=== PATIENT | male | born 1950 | race Caucasian/White ===

== ENCOUNTER → 2016-10-15 | Outpatient (CLI) | payer MEDICARE ==
[2016-10-15 08:10] LABS: BASOPHILS # (AUTO) 0.1 10^3/uL (0.0-0.1); BASOPHILS % (AUTO) 1 % (0-10); EOSINOPHILS # (AUTO) 0.2 10^3/uL (0.0-0.3); EOSINOPHILS % (AUTO) 3 % (0-10); LYMPHOCYTES # (AUTO) 2.8 X 10^3 (1.0-4.0); LYMPHOCYTES % (AUTO) 36 % (12-44); MEAN CORPUSCULAR HEMOGLOBIN 31 PG (25-34); MEAN CORPUSCULAR HGB CONC 35 G/DL (32-36); MEAN CORPUSCULAR VOLUME 89 FL (80-99); MONOCYTES # (AUTO) 0.9 X 10^3 (0.0-1.0); MONOCYTES % (AUTO) 12 % (0-12); NEUTROPHILS # (AUTO) 3.8 X 10^3 (1.8-7.8); NEUTROPHILS % (AUTO) 49 % (42-75); PLATELET COUNT 162 10^3/uL (130-400); RED BLOOD COUNT 4.82 10^6/uL (4.35-5.85); RED CELL DISTRIBUTION WIDTH 13.8 % (10.0-14.5); WHITE BLOOD COUNT 7.8 10^3/uL (4.3-11.0)
[2016-10-15 08:32] LABS: ALANINE AMINOTRANSFERASE 32 U/L (0-55); ALBUMIN 4.5 G/DL (3.2-4.5); ANION GAP 10 MMOL/L (5-14); ASPARTATE AMINO TRANSFERASE 35 U/L (5-34); BILIRUBIN,TOTAL 0.7 MG/DL (0.1-1.0); BLOOD UREA NITROGEN 20 MG/DL (7-18); BUN/CREATININE RATIO 19; CALCIUM 9.4 MG/DL (8.5-10.1); CARBON DIOXIDE 22 MMOL/L (21-32); CHLORIDE 105 MMOL/L (98-107); CHOLESTEROL 131 MG/DL (< 200); CREATININE SERUM 1.06 MG/DL (0.60-1.30); DIRECT LDL 56 MG/DL (1-129); GFR ESTIMATED > 60; GLUCOSE 158 MG/DL (70-105); POTASSIUM 4.1 MMOL/L (3.6-5.0); SODIUM 137 MMOL/L (135-145); TOTAL PROTEIN 7.3 G/DL (6.4-8.2); TRIGLYCERIDES 249 MG/DL (<150); VLDL CHOLESTEROL 50 MG/DL (5-40)
[2016-10-15 08:54] LABS: THYROID STIMULATING HORMONE 2.08 UIU/ML (0.35-4.94)
== END ==
LOC: LAB 07:54
PROVIDERS: ATTEND Family Medicine
DX: E78.2 Mixed hyperlipidemia (principal); E03.9 Hypothyroidism, unspecified; E11.9 Type 2 diabetes mellitus without complications
CPT/HCPCS: 36415; 80053; 80061; 83036; 84443; 85025

== ENCOUNTER 2020-03-26 05:41 | Outpatient (CLI) | payer MEDICARE ==
[~2020-03-26] VITALS: Ht 180 cm; Wt 81.8 kg
[2020-03-26] MEDS ORDERED: METO50TA15 PO (12:03)
[2020-03-26] MEDS ORDERED: FENO134C PO (12:03)
[2020-03-26] MEDS ORDERED: GLIM1TAB4 PO ×2 (12:03)
[2020-03-26] MEDS ORDERED: IRBE150T23 PO (12:03)
[2020-03-26] MEDS ORDERED: ALLO300T2 PO (12:03)
== END 2020-03-26 12:07 | disposition home or self-care (01) ==
LOC: PREOP 05:41
PROVIDERS: ATTEND Specialist
DX: Z01.818 Encounter for other preprocedural examination (principal)

== ENCOUNTER 2020-03-28 06:05 | Day surgery (SDC) | payer MEDICARE ==
[~2020-03-28] VITALS: Ht 180 cm; Wt 81.8 kg
[~2020-03-28 06:05] MED LIST: ALLO300T2 PO; FENO134C PO; GLIM1TAB4 PO; IRBE150T23 PO; METO50TA15 PO
[2020-03-28] MEDS ORDERED: POVIDONE (BETADINE) OPHTH SOLN 5% 30 ML OP ONE (06:15)
[2020-03-28] MEDS ORDERED: TIMOLOL MALEATE 0.5% 5 ML (TIMOPTIC) BTL OU PRN (06:15)
[2020-03-28] MEDS ORDERED: MOXIFLOXACIN OPHTH SOLN 5 MG/ML 0.3 ML SYRINGE OP ONE (06:15)
[2020-03-28] MEDS ORDERED: LIDOCAINE PF 1% 2 ML VIAL IR PRN (06:15)
[2020-03-28 06:20] VITALS: BP 148/88
[2020-03-28] MEDS: TETRACAINE 0.5% OPHTH SOLN 4 ML BTL (SINGLE DOSE ONLY) OU PRN ×4 (06:25→06:46)
[2020-03-28] MEDS: CYCLOPENTOLATE 1% (CYCLOGYL) 2 ML DROPS OP SCH ×3 (06:35→06:46)
[2020-03-28] MEDS: PHENYLEPHRINE 10% OPHTH (NEO-SYN) 5 ML BTL OU SCH ×3 (06:35→06:46)
[2020-03-28] MEDS ORDERED: MIDAZOLAM 2 MG/2 ML (VERSED) VIAL ONE (06:55)
--- NOTE | 2020-03-28 07:02 | Ophthalmologist Pre-Op Note ---
Pre-Operative Progress Note H&P Reviewed The H&P was reviewed, patient examined and no changes noted. Date H&P Reviewed: Mar 28, 2020 Time H&P Reviewed: 07:02 Pre-Op Dx Cataract, Right Eye JOSE VILLATORO MD Mar 28, 2020 07:02
--- NOTE | 2020-03-28 07:22 | Ophthalmology Operative Report ---
Cataract removal/placement IOL PREOPERATIVE DIAGNOSIS: Cataract Right Eye POSTOPERATIVE DIAGNOSIS: Cataract Right Eye PROCEDURE: Cataract removal and placement of posterior chamber implant, right eye SURGEON: Juan Luis Villatoro ANESTHESIA: Topical with sedation COMPLICATIONS: None ESTIMATED BLOOD LOSS: Minimal DESCRIPTION OF PROCEDURE: After proper informed consent was obtained, the patient, a 70 male, was taken to the Operating Room and the right eye was anesthetized with tetracaine. The right eye was then prepped and draped in the usual manner. A wire lid speculum was placed. A paracentesis was made at the left hand position. Preservative free lidocaine was injected into the anterior chamber followed by viscoelastic. A clear corneal incision was made in the temporal position. A capsulorrhexis was preformed and the central nuclear and cortical material were removed. The posterior capsule was polished and Sadi 21.0 AU00T0 IOL was placed into the capsular bag. The residual viscoelastic was aspirated and balanced saline solution was injected into the anterior chamber. Moxifloxacin was injected into the anterior chamber. The wound was checked and found to be water tight. The patient tolerated the procedure well without complications. JUAN LUIS VILLATORO MD Mar 28, 2020 07:21
[2020-03-28] MEDS ORDERED: acetaZOLAMIDE ER 500 MG CAP (DIAMOX SEQUELS) PO ONE (07:30)
[2020-03-28 08:30] VITALS: BP 148/78
--- NOTE | 2020-03-28 13:00 | Anesthesia-General Post-Op ---
MAC Patient Condition Mental Status/LOC: Same as Preop Cardiovascular: Satisfactory Nausea/Vomiting: Absent Respiratory: Satisfactory Pain: Controlled Complications: Absent Post Op Complications Complications None Follow Up Care/Instructions Patient Instructions None needed. Anesthesiology Discharge Order Discharge Order Patient is doing well, no complaints, stable vital signs, no apparent adverse anesthesia problems. No complications reported per nursing. ALEJANDRO WISDOM CRNA Mar 28, 2020 13:00
== END 2020-03-28 08:30 | disposition home or self-care (01) ==
LOC: SDC 06:05
PROVIDERS: ATTEND Specialist
DX: H25.11 Age-related nuclear cataract, right eye (principal); E11.36 Type 2 diabetes mellitus with diabetic cataract; I10 Essential (primary) hypertension; E78.00 Pure hypercholesterolemia, unspecified; Z79.899 Other long term (current) drug therapy
CPT/HCPCS: 66984; V2632

== ENCOUNTER 2020-04-04 06:10 | Day surgery (SDC) | payer MEDICARE ==
[~2020-04-04] VITALS: Ht 180 cm; Wt 81.8 kg
[2020-04-04] MEDS ORDERED: POVIDONE (BETADINE) OPHTH SOLN 5% 30 ML OP ONE (06:15)
[2020-04-04] MEDS ORDERED: LIDOCAINE PF 1% 2 ML VIAL IR PRN (06:15)
[2020-04-04] MEDS ORDERED: MOXIFLOXACIN OPHTH SOLN 5 MG/ML 0.3 ML SYRINGE OP ONE (06:15)
[2020-04-04] MEDS ORDERED: TIMOLOL MALEATE 0.5% 5 ML (TIMOPTIC) BTL OU PRN (06:15)
[2020-04-04 06:29] VITALS: BP 143/68
[2020-04-04] MEDS: TETRACAINE 0.5% OPHTH SOLN 4 ML BTL (SINGLE DOSE ONLY) OU PRN ×4 (06:39→06:51)
[2020-04-04] MEDS: CYCLOPENTOLATE 1% (CYCLOGYL) 2 ML DROPS OP SCH ×3 (06:46→06:56)
[2020-04-04] MEDS: PHENYLEPHRINE 10% OPHTH (NEO-SYN) 5 ML BTL OU SCH ×3 (06:46→06:56)
[2020-04-04] MEDS ORDERED: MIDAZOLAM 2 MG/2 ML (VERSED) VIAL ONE (07:09)
--- NOTE | 2020-04-04 07:27 | Ophthalmologist Pre-Op Note ---
Pre-Operative Progress Note H&P Reviewed The H&P was reviewed, patient examined and no changes noted. Date H&P Reviewed: Apr 04, 2020 Time H&P Reviewed: 07:27 Pre-Op Dx Cataract, Left Eye JOSE VILLATORO MD Apr 04, 2020 07:27
[2020-04-04] MEDS ORDERED: acetaZOLAMIDE ER 500 MG CAP (DIAMOX SEQUELS) PO ONE (07:30)
--- NOTE | 2020-04-04 07:48 | Ophthalmology Operative Report ---
Cataract removal/placement IOL PREOPERATIVE DIAGNOSIS: Cataract Left Eye POSTOPERATIVE DIAGNOSIS: Cataract Left Eye PROCEDURE: Cataract removal and placement of posterior chamber implant, left eye SURGEON: Juan Luis Villatoro ANESTHESIA: Topical with sedation COMPLICATIONS: None ESTIMATED BLOOD LOSS: Minimal DESCRIPTION OF PROCEDURE: After proper informed consent was obtained, the patient, a 70 male, was taken to the Operating Room and the left eye was anesthetized with tetracaine. The left eye was then prepped and draped in the usual manner. A wire lid speculum was placed. A paracentesis was made at the left hand position. Preservative free lidocaine was injected into the anterior chamber followed by viscoelastic. A clear corneal incision was made in the temporal position. A capsulorrhexis was preformed and the central nuclear and cortical material were removed. The posterior capsule was polished and an Sadi 20.0 AU00T0 was placed into the capsular bag. The residual viscoelastic was aspirated and balanced saline solution was injected into the anterior chamber. Moxifloxacin was injected into the anterior chamber. The wound was checked and found to be water tight. The patient tolerated the procedure well without complications. JUAN LUIS VILLATORO MD Apr 04, 2020 07:48
[2020-04-04 07:59] VITALS: BP 108/76
--- NOTE | 2020-04-04 13:43 | Anesthesia-General Post-Op ---
MAC Patient Condition Mental Status/LOC: Same as Preop Cardiovascular: Satisfactory Nausea/Vomiting: Absent Respiratory: Satisfactory Pain: Controlled Complications: Absent Post Op Complications Complications None Follow Up Care/Instructions Patient Instructions None needed. Anesthesiology Discharge Order Discharge Order Patient was seen this morning after the procedure and he was doing well, no complaints, stable vital signs, no apparent adverse anesthesia problems. KIP PEDRO DO Apr 04, 2020 13:43
== END 2020-04-04 07:50 ==
LOC: SDC 06:10
PROVIDERS: ATTEND Specialist
DX: H25.12 Age-related nuclear cataract, left eye (principal); I10 Essential (primary) hypertension; E11.36 Type 2 diabetes mellitus with diabetic cataract; E78.00 Pure hypercholesterolemia, unspecified; Z79.899 Other long term (current) drug therapy
CPT/HCPCS: 66984; V2632

== ENCOUNTER → 2021-03-24 | Outpatient (CLI) | payer MEDICARE ==
[~2021-03-24] VITALS: Ht 180 cm; Wt 79.0 kg
[~2021-03-24] MED LIST changes: +CATHETER FLUSH 10 ML SYR IV PRN
[2021-03-24 12:57] VITALS: BP 177/74
--- NOTE | 2021-03-24 14:51 | STRESS TEST ---
DATE OF SERVICE: 03/24/2021 RESTING AND POST EXERCISE TECHNETIUM-99M TETROFOSMIN SPECT CT IMAGING ORDERING PHYSICIAN: Dr. Obando. CLINICAL DIAGNOSIS: Abnormal electrocardiogram. Baseline images were carried out after injection of 10.6 mCi of technetium-99m Tetrofosmin. Subsequently, exercise was carried out on a treadmill. Heart rate response to exercise was normal. Blood pressure response to exercise was hypertensive. The patient exercised for a total of 9 minutes and 10 seconds. After he had attained target heart rate and had indicated that he would not be able to go for more than another minute, 31.6 mCi of technetium-99m Tetrofosmin were injected, and the exercise was continued for another minute. Exercise was stopped on account of fatigue. There was approximately [address] segment depression immediately postexercise. This improved with rest. Review of images at rest and following stress indicates a small transient apical perfusion defect. Gated images show normal global left ventricular systolic function with normal regional wall motion. Left ventricular ejection fraction is calculated to be 66%. Left ventricular end diastolic volume is 62 mL. TID is absent (1.08). CONCLUSIONS: 1. This study is indicative of a small amount of apical ischemia. 2. Normal regional wall motion. 3. Normal global left ventricular systolic function with a calculated ejection fraction of 66%. Job ID: [id number] DocumentID: [id number] Dictated Date: 03/24/2021 14:43:26 Bone Cooking Operator Date: 03/24/2021 14:50:57 Dictated By: ARRON OBANDO MD, MA, FACP, FACC,
== END ==
LOC: CARD 10:30
PROVIDERS: ATTEND Internal Medicine Cardiovascular Disease
DX: I25.9 Chronic ischemic heart disease, unspecified (principal)
CPT/HCPCS: 78452; 93017; 93306; A9502

== ENCOUNTER 2021-04-21 08:00 | Day surgery (SDC) | payer MEDICARE ==
[~2021-04-21] VITALS: Ht 180.3 cm; Wt 82.3 kg
[2021-04-21] VITALS (16 sets, daily range): BP systolic 124–182; BP diastolic 50–117
[2021-04-21 07:32] LABS: HEMATOCRIT 41 % (40-54); HEMOGLOBIN 13.9 g/dL (13.3-17.7); MEAN CORPUSCULAR HEMOGLOBIN 32 pg (25-34); MEAN CORPUSCULAR HGB CONC 34 g/dL (32-36); MEAN CORPUSCULAR VOLUME 93 fL (80-99); MEAN PLATELET VOLUME 10.7 fL (9.0-12.2); PLATELET COUNT 173 10^3/uL (130-400); WHITE BLOOD COUNT 7.4 10^3/uL (4.3-11.0)
[2021-04-21 07:45] LABS: ALBUMIN 4.2 GM/DL (3.2-4.5); POTASSIUM 4.2 MMOL/L (3.6-5.0)
[2021-04-21 07:46] LABS: CALCIUM 9.1 MG/DL (8.5-10.1)
[2021-04-21 07:48] LABS: TOTAL PROTEIN 7.1 GM/DL (6.4-8.2)
[2021-04-21 07:50] LABS: BILIRUBIN,TOTAL 0.6 MG/DL (0.1-1.0)
[2021-04-21 07:51] LABS: CREATININE SERUM 1.02 MG/DL (0.60-1.30)
[2021-04-21 07:58] LABS: PROTHROMBIN TIME PATIENT 13.5 SEC (12.2-14.7)
[~2021-04-21 08:00] MED LIST changes: -CATHETER FLUSH 10 ML SYR IV PRN; +HEParin (CATH LAB) 2,000 ML IV ONE; +LIDOCAINE 1% INJ 20 ML 20 ML VIAL ONE; +NS IV 1000 ML 1,000 ML ONE
[2021-04-21] MEDS ORDERED: ASPI-1238 PO (08:09)
[2021-04-21] MEDS ORDERED: CHOL10004 PO (08:09)
[2021-04-21] MEDS ORDERED: ATOR40TA70 PO (08:09)
[2021-04-21] MEDS ORDERED: MULT-1136 PO (08:09)
[2021-04-21] MEDS ORDERED: KRIL1CAP PO (08:09)
[2021-04-21] MEDS ORDERED: fentaNYL INJ 100 MCG/2 ML AMP ONE (08:15)
[2021-04-21] MEDS ORDERED: MIDAZOLAM 5 MG/5 ML (VERSED) VIAL ONE (08:15)
[2021-04-21] MEDS ORDERED: HEParin 1000 UNIT/ML (10ML VIAL) FOR BOLUS ONE (09:02)
[2021-04-21] MEDS ORDERED: EPTIFIBATIDE BOLUS 20 ML IV ONE (09:02)
[2021-04-21] MEDS ORDERED: NITRO DRIP 25000 MCG/D5W 250 ML IV ONE (09:21)
[2021-04-21] MEDS ORDERED: PATIENT MAY USE OWN MEDS, ALL PO SCH (09:30)
[2021-04-21] MEDS ORDERED: ASPIRIN 81 MG CHEW (CHILDREN'S ASA) ONE (09:30)
[2021-04-21] MEDS ORDERED: CLOPIDOGREL 300 MG (PLAVIX) TABLET PO ONE (09:30)
--- NOTE | 2021-04-21 09:31 | Cardiac Procedure Note-CS/ASA ---
Pre-Procedure Note Pre-Op Procedure Note H&P Reviewed The H&P was reviewed, patient examined and no changes noted. Date H&P Reviewed: Apr 21, 2021 Time H&P Reviewed: 08:30 Conscious Sedation Pre-Proced Time 08:30 ASA Score 3 For ASA 3 and 4: Consider anesthesia and medical clearance. Also, for patients with a history of failed moderate sedation consider anesthesia. Airway Lungs Heart ASA score ASA 1: a normal healthy patient ASA 2: a patient with a mild systemic disease (mid diabetes, controlled hypertension, obesity ASA 3: a patient with a severe systemic disease that limits activity (angina, COPD, prior Myocardial infarction) ASA 4: a patient with an incapacitating disease that is a constant threat to life (CHF, renal failure) ASA 5: a moribund patient not expected to survive 24 hrs. (ruptured aneurysm) ASA 6: a declared brain- patient whose organs are being harvested. For emergent operations, add the letter E after the classification Mallampati Classification Grade 2 Sedation Plan Analgesia, Amnesia, Plan communicated to team members, Discussed options with patient/fam, Discussed risks with patient/fam The patient is an appropriate candidate to undergo the planned procedure, sedation, and anesthesia. The patient immediately re-assessed prior to indication. ARRON RAYMOND MD FACP FAC CCDS Apr 21, 2021 09:31
[2021-04-21] MEDS ORDERED: ATROPINE INJECTION 1 MG/10 ML SYR (ABBOTT) ONE (11:18)
--- NOTE | 2021-04-21 12:48 | CARDIAC CATHETERIZATION ---
DATE OF SERVICE: 04/21/2021 CARDIAC CATHETERIZATION AND CORONARY INTERVENTION REPORT INDICATION FOR PROCEDURE: The patient is a 71-year-old man, who has multiple coronary artery disease risk factors, who has an abnormal electrocardiogram that is indicative of a possible anterior wall myocardial infarction. He underwent a myocardial perfusion imaging study, which indicated apical ischemia. Cardiac catheterization was carried out today after having obtained an informed consent. DESCRIPTION OF PROCEDURE: He was brought to the cardiac catheterization laboratory in a fasting state. Right groin was prepared and draped in the usual sterile fashion. Lidocaine 1% was used for local anesthesia. Modified Seldinger technique was used to advance a 5-Polish sheath into the right femoral artery, 5-Polish JL4 catheter was used for left coronary angiography, 5-Polish JR4 catheter was used for right coronary angiography, 5-Polish pigtail catheter was used for left heart catheterization and left ventricular angiography. Subsequently, percutaneous intervention was carried out in the left anterior descending artery that is described below. PERCUTANEOUS INTERVENTION TO THE LEFT ANTERIOR DESCENDING: We exchanged the sheath over a wire for a 6-Polish sheath. We gave 5000 units of intravenous heparin. A double bolus of Integrilin was given during the interventional procedure. We used a 6-Polish JL3.5 guide catheter to engage the left coronary artery. We advanced a ChoICE floppy wire across the lesion and the tip was placed in the distal vessel. We carried out balloon angioplasty at a 90% stenosis in the mid left anterior descending, following the origin of the first septal materials planning manager. This reduced the stenosis from approximately 90% to approximately 60%. The balloon was removed and we advanced Noy 2.5 x 18 mm stent. This was deployed at 14 atmospheres. Subsequent angiography revealed 0% residual stenosis. Flow throughout the vessel is normal. He tolerated the procedure well. The angioplasty equipment was removed. Sheath was sutured in place and he was transferred to the floor for manual sheath removal. HEMODYNAMICS: Left ventricular end-diastolic pressure following coronary angiography was 13 mmHg. There was no significant pressure gradient on pullback across the aortic valve. CORONARY ANGIOGRAPHY: Left main coronary artery is free of significant disease. Left anterior descending artery has mild to moderate proximal calcification. Left anterior descending artery had 90% stenosis following the origin of the first septal materials planning manager. To this, successful intervention was carried out. Following deployment of Noy 2.5 x 18 mm stent, there was no significant residual stenosis. The left circumflex artery is nondominant and does not exhibit significant disease. The right coronary artery is dominant and has mild plaques. LEFT VENTRICULAR ANGIOGRAPHY: Left ventricular angiography was carried out in the right anterior oblique projection. Global left ventricular systolic function is normal. No regional wall motion abnormalities are seen. Left ventricular ejection fraction is approximately 60%. CONCLUSIONS: 1. Coronary artery disease primarily consisting of 90% mid vessel stenosis in the left anterior descending to which successful stenting was carried out with Noy 2.5 x 18 mm stent that reduced the stenosis to 0% residual. The rest of the coronary vessels have mild plaques. 2. Well preserved global left ventricular systolic function with an ejection fraction of approximately 60%. 3. Left ventricular end-diastolic pressure 13 mmHg. DISCUSSION AND RECOMMENDATIONS: Dual antiplatelet therapy has been initiated. Statin therapy is being continued. Beta blockers are being continued. He remains in the hospital for overnight observation. Job ID: [id number] DocumentID: [id number] Dictated Date: 04/21/2021 09:43:42 Pharmacy Technician Infusion Date: 04/21/2021 12:48:03 Dictated By: ARRON RAYMOND MD, MA, FACP, FACC,
[2021-04-21] MEDS: NS IV 1000 ML 1,000 ML IV SCH ×4 (13:48→19:48)
[2021-04-21] MEDS ORDERED: GLIMEPIRIDE 1 MG (AMARYL) TAB PO SCH (18:00)
[2021-04-21] MEDS ORDERED: amLODIPine 5 MG (NORVASC) TAB PO PRN (20:15)
[2021-04-21] MEDS ORDERED: amLODIPine 5 MG (NORVASC) TAB PO ONE (20:15)
[2021-04-21] MEDS ORDERED: amLODIPine 5 MG (NORVASC) TAB ONE (20:41)
[2021-04-21] MEDS ORDERED: meTOprolol TARTRATE 50 MG (LOPRESSOR) TAB PO SCH (21:00)
[2021-04-22] VITALS (11 sets, daily range): BP systolic 106–158; BP diastolic 49–64
[2021-04-22] MEDS: NS IV 1000 ML 1,000 ML IV SCH ×2 (04:27→05:36)
[2021-04-22 05:06] LABS: BASOPHILS # (AUTO) 0.1 10^3/uL (0.0-0.1); BASOPHILS % (AUTO) 1 % (0-10); EOSINOPHILS # (AUTO) 0.2 10^3/uL (0.0-0.3); EOSINOPHILS % (AUTO) 3 % (0-10); HEMATOCRIT 39 % (40-54); HEMOGLOBIN 13.4 g/dL (13.3-17.7); LYMPHOCYTES # (AUTO) 2.1 10^3/uL (1.0-4.0); LYMPHOCYTES % (AUTO) 39 % (12-44); MEAN CORPUSCULAR HEMOGLOBIN 32 pg (25-34); MEAN CORPUSCULAR HGB CONC 34 g/dL (32-36); MEAN CORPUSCULAR VOLUME 92 fL (80-99); MEAN PLATELET VOLUME 10.1 fL (9.0-12.2); MONOCYTES # (AUTO) 0.6 10^3/uL (0.0-1.0); MONOCYTES % (AUTO) 10 % (0-12); NEUTROPHILS # (AUTO) 2.5 10^3/uL (1.8-7.8); NEUTROPHILS % (AUTO) 46 % (42-75); PLATELET COUNT 135 10^3/uL (130-400); WHITE BLOOD COUNT 5.4 10^3/uL (4.3-11.0)
[2021-04-22 05:32] LABS: POTASSIUM 4.2 MMOL/L (3.6-5.0)
[2021-04-22 05:33] LABS: CALCIUM 9.2 MG/DL (8.5-10.1)
[2021-04-22 05:37] LABS: CREATININE SERUM 0.89 MG/DL (0.60-1.30)
[2021-04-22] MEDS ORDERED: GLIMEPIRIDE 1 MG (AMARYL) TAB PO SCH (07:00)
--- NOTE | 2021-04-22 08:10 | Progress Note - Cardiology ---
Cardiology SOAP Progress Note Objective: I&O/Vital Signs 04/21/21 04/21/21 04/21/21 04/21/21 21:00 21:00 22:00 23:00 Pulse 46 48 49 Resp 14 18 B/P (MAP) 124/50 (74) 140/63 (88) 143/64 (90) Pulse Ox 97 98 97 98 O2 Delivery Room Air Room Air Room Air Room Air 04/22/21 04/22/21 04/22/21 04/22/21 00:00 00:00 01:00 01:00 Temp 36.6 Pulse 45 45 44 Resp 19 18 B/P (MAP) 143/63 (89) 116/50 (72) Pulse Ox 96 97 O2 Delivery Room Air Room Air 04/22/21 04/22/21 04/22/21 04/22/21 02:00 03:00 04:00 04:00 Temp 36.0 Pulse 46 43 43 Resp 17 14 B/P (MAP) 137/60 (85) 106/49 (68) 117/62 (80) Pulse Ox 97 97 97 O2 Delivery Room Air Room Air Room Air 04/22/21 04/22/21 04/22/21 05:00 06:00 07:39 Temp 37.0 Pulse 45 47 Resp 19 14 B/P (MAP) 134/64 (87) 158/49 (85) Pulse Ox 96 97 O2 Delivery Room Air Room Air 04/22/21 00:00 Intake Total 630 ml Output Total 1900 ml Balance -1270 ml Results/Procedures: Labs Laboratory Tests 04/22/21 04:47: White Blood Count 5.4, Red Blood Count 4.23L, Hemoglobin 13.4, Hematocrit 39L, Mean Corpuscular Volume 92, Mean Corpuscular Hemoglobin 32, Mean Corpuscular Hemoglobin Concent 34, Red Cell Distribution Width 13.3, Platelet Count 135, Mean Platelet Volume 10.1, Immature Granulocyte % (Auto) 0, Neutrophils (%) (Auto) 46, Lymphocytes (%) (Auto) 39, Monocytes (%) (Auto) 10, Eosinophils (%) (Auto) 3, Basophils (%) (Auto) 1, Neutrophils # (Auto) 2.5, Lymphocytes # (Auto) 2.1, Monocytes # (Auto) 0.6, Eosinophils # (Auto) 0.2, Basophils # (Auto) 0.1, Immature Granulocyte # (Auto) 0.0, Percent Immature Platelet Fraction 3.8, Sodi um Level 138, Potassium Level 4.2, Chloride Level 106, Carbon Dioxide Level 21, Anion Gap 11, Blood Urea Nitrogen 16, Creatinine 0.89, Estimat Glomerular Filtration Rate 84, BUN/Creatinine Ratio 18, Glucose Level 204H, Calcium Level 9.2 Microbiology 04/21/21 MRSA Screen - Final, Complete MRSA not isolated Laboratory Tests 04/21/21 07:24 04/22/21 04:47 A/P: Assessment: CAD - ECG of 12/15/20 shows NSR and old ASMI - MPI of 03-24-21 shows This study is indicative of a small amount of apical ischemia. Normal regional wall motion. Normal global left ventricular systolic function with a calculated ejection fraction of 66% - Cardiac cath of 04-21-21: Coronary artery disease primarily consisting of 90% mid vessel stenosis in the left anterior descending to which successful stenting was carried out with Noy 2.5 x 18 mm stent that reduced the stenosis to 0% residual. The rest of the coronary vessels have mild plaques. Well preserved global left ventricular systolic function with an ejection fraction of approximately 60%. Left ventricular end-diastolic pressure 13 mmHg. Sinus bradycardia - asymptomatic HTN - uncontrolled HLD - statin tx - managed by PCP DM 2 - managed by PCP Carotid arterial disease - mild plaque on carotid u/s of 12/15/20 Cardiac systolic murmur - Echocardiogram of 03-24-21 showed LVEF 60-65%. PASP 20-25 mmHg NATALIE PERRY Apr 22, 2021 08:10
[2021-04-22] MEDS ORDERED: ASPI81TA64 PO (08:58)
[2021-04-22] MEDS ORDERED: CLOP75TA28 PO (08:58)
[2021-04-22] MEDS ORDERED: METO-351 PO (08:58)
--- NOTE | 2021-04-22 08:59 | Discharge Inst-Cardiology ---
Discharge Inst-Cardiac Discharge Medications New Medications: Metoprolol Succinate (Toprol Xl) 25 Mg Tab.er.24h 25 MG PO DAILY, #90 TAB 3 Refills Aspirin (Children's Aspirin) 81 Mg Tab.chew 81 MG PO DAILY, #90 TAB 3 Refills Clopidogrel Bisulfate (Clopidogrel) 75 Mg Tablet 75 MG PO DAILY, #90 TAB 3 Refills Continued Medications: Allopurinol (Allopurinol) 300 Mg Tablet 300 MG PO DAILY, TAB Atorvastatin Calcium (Atorvastatin Calcium) 40 Mg Tablet 40 MG PO 1999, TAB Cholecalciferol (Vitamin D3) (Vitamin D3) 25 Mcg Tablet 25 MCG PO DAILY, TAB Fenofibrate,Micronized (Fenofibrate) 134 Mg Capsule 134 MG PO DAILY, CAP Glimepiride (Glimepiride) 1 Mg Tablet 1 MG PO 1800 W/DINNER, TAB Glimepiride (Glimepiride) 1 Mg Tablet 0.5 MG PO DAILY, TAB TAKES OF 1MG TAB Irbesartan (Irbesartan) 150 Mg Tablet 150 MG PO DAILY, TAB Krill/Om3/Dha/Epa/Om6/Lip/Astx (Krill Oil 1,000 mg Softgel) 1 Each Capsule 2 EACH PO DAILY, CAP Multivitamin (Multivitamin) 1 Each Tablet 1 EACH PO DAILY, TAB Discontinued Medications: Aspirin (Aspirin EC) 81 Mg Tablet.dr 81 MG PO 1999, TAB Metoprolol Tartrate (Metoprolol Tartrate) 50 Mg Tablet 50 MG PO BID, TAB New, Converted or Re-Newed RX: Transmitted to Pharmacy Patient Instructions Patient Instructions: Please schedule follow up appointment to be seen by Dr. Obando in 2 weeks NATALIE PERRY Apr 22, 2021 08:59
[2021-04-22] MEDS ORDERED: ASPIRIN 81 MG CHEW (CHILDREN'S ASA) PO SCH (09:00)
[2021-04-22] MEDS ORDERED: LOSARTAN 50 MG (COZAAR) TAB PO SCH (09:00)
[2021-04-22] MEDS ORDERED: EPA PO SCH (09:00)
[2021-04-22] MEDS ORDERED: [UNRECOGNIZED DRUG - OTHER] PO SCH (09:00)
[2021-04-22] MEDS ORDERED: CLOPIDOGREL 75 MG (PLAVIX) TABLET PO SCH (09:00)
[2021-04-22] MEDS ORDERED: NON-FORMULARY MEDICATION 1 EA EA (Multivitamin 1 EACH) PO SCH (09:00)
[2021-04-22] MEDS ORDERED: VITAMIN D3 25 MCG (1,000 UNITS) TABLET PO SCH (09:00)
[2021-04-22] MEDS ORDERED: ASTX PO SCH (09:00)
[2021-04-22] MEDS ORDERED: ALLOPURINOL 300 MG (ZYLOPRIM) TAB PO SCH (09:00)
[2021-04-22] MEDS ORDERED: DHA PO SCH (09:00)
[2021-04-22] MEDS ORDERED: KRILL PO SCH (09:00)
[2021-04-22] MEDS ORDERED: meTOprolol TARTRATE 50 MG (LOPRESSOR) TAB PO SCH ×2 (09:00)
[2021-04-22] MEDS ORDERED: LIP PO SCH (09:00)
[2021-04-22] MEDS ORDERED: FENOFIBRATE 134 MG (LOFIBRA) CAPSULE PO SCH (09:00)
--- NOTE | 2021-04-22 12:41 | Progress Note - Cardiology ---
Cardiology SOAP Progress Note Subjective: No cp or palp or syncope or shortness of breath No n/v/d No focal weakness No groin or leg discomfort Objective: I&O/Vital Signs 04/22/21 04/22/21 04/22/21 04/22/21 01:00 01:00 02:00 03:00 Pulse 45 44 46 43 Resp 18 17 14 B/P (MAP) 116/50 (72) 137/60 (85) 106/49 (68) Pulse Ox 97 97 97 O2 Delivery Room Air Room Air Room Air 04/22/21 04/22/21 04/22/21 04/22/21 04:00 04:00 05:00 06:00 Temp 36.0 Pulse 43 45 47 Resp 19 14 B/P (MAP) 117/62 (80) 134/64 (87) 158/49 (85) Pulse Ox 97 96 97 O2 Delivery Room Air Room Air Room Air 04/22/21 04/22/21 04/22/21 04/22/21 07:00 07:39 08:00 09:00 Temp 37.0 Resp 19 23 B/P (MAP) 131/58 (82) 132/61 (84) Pulse Ox 96 94 98 O2 Delivery Room Air Room Air Room Air 04/22/21 04/22/21 09:00 10:00 Pulse 47 44 Resp 21 19 B/P (MAP) 154/64 (94) 138/61 (86) Pulse Ox 97 94 O2 Delivery Room Air Room Air 04/22/21 00:00 Intake Total 630 ml Output Total 1900 ml Balance -1270 ml Condition: DP/PT pulses palpable Bruising: mild bruising Constitutional: AAO x 3, well-developed, well-nourished Respiratory: No accessory muscle use; other (good, bilateral air entry) Cardiovascular: regular rate-rhythm, S1 and S2 Gastrointestional: No tender; soft; No guarding, No rebound Extremities: No clubbing, No cyanosis, No significant edema Neurologic/Psychiatric: oriented x 3, other (moves all limbs equally) Skin: No rash on exposed areas, No ulcerations on exposed areas Results/Procedures: Labs Laboratory Tests 04/22/21 04:47: White Blood Count 5.4, Red Blood Count 4.23L, Hemoglobin 13.4, Hematocrit 39L, Mean Corpuscular Volume 92, Mean Corpuscular Hemoglobin 32, Mean Corpuscular Hemoglobin Concent 34, Red Cell Distribution Width 13.3, Platelet Count 135, Mean Platelet Volume 10.1, Immature Granulocyte % (Auto) 0, Neutrophils (%) (Auto) 46, Lymphocytes (%) (Auto) 39, Monocytes (%) (Auto) 10, Eosinophils (%) (Auto) 3, Basophils (%) (Auto) 1, Neutrophils # (Auto) 2.5, Lymphocytes # (Auto) 2.1, Monocytes # (Auto) 0.6, Eosinophils # (Auto) 0.2, Basophils # (Auto) 0.1, I mmature Granulocyte # (Auto) 0.0, Percent Immature Platelet Fraction 3.8, Sodium Level 138, Potassium Level 4.2, Chloride Level 106, Carbon Dioxide Level 21, Anion Gap 11, Blood Urea Nitrogen 16, Creatinine 0.89, Estimat Glomerular Filtration Rate 84, BUN/Creatinine Ratio 18, Glucose Level 204H, Calcium Level 9.2 Microbiology 04/21/21 MRSA Screen - Final, Complete MRSA not isolated Laboratory Tests 04/21/21 07:24 04/22/21 04:47 A/P: Assessment: CAD - ECG of 12/15/20 shows NSR and old ASMI - MPI of 03-24-21 shows This study is indicative of a small amount of apical ischemia. Normal regional wall motion. Normal global left ventricular systolic function with a calculated ejection fraction of 66% - Cardiac cath of 04-21-21: Coronary artery disease primarily consisting of 90% mid vessel stenosis in the left anterior descending to which successful stenting was carried out with Noy 2.5 x 18 mm stent that reduced the stenosis to 0% residual. The rest of the coronary vessels have mild plaques. Well preserved global left ventricular systolic function with an ejection fraction of approximately 60%. Left ventricular end-diastolic pressure 13 mmHg. Sinus bradycardia - asymptomatic HTN - uncontrolled HLD - statin tx - managed by PCP DM 2 - managed by PCP Carotid arterial disease - mild plaque on carotid u/s of 12/15/20 Cardiac systolic murmur - Echocardiogram of 03-24-21 showed LVEF 60-65%. PASP 20-25 mmHg Plan: * Continue ASA. Add Plavix * Reduce Toprol XL due to bradycardia * Continue statin * I discussed his CV issues and cath findings and interventions undertaken with him and answered questions * Med compliance advised * Outpt f/u advised ARRON RAYMOND MD FACP FAC CCDS Apr 22, 2021 12:41
--- NOTE | 2021-04-22 12:43 | Cardiology Discharge Summary ---
Diagnosis/Chief Complaint Date of Admission 04-21-21 Date of Discharge 04-22-21 Final/Discharge Diagnosis CAD - ECG of 12/15/20 shows NSR and old ASMI - MPI of 03-24-21 shows This study is indicative of a small amount of apical ischemia. Normal regional wall motion. Normal global left ventricular systolic function with a calculated ejection fraction of 66% - Cardiac cath of 04-21-21: Coronary artery disease primarily consisting of 90% mid vessel stenosis in the left anterior descending to which successful stenting was carried out with Noy 2.5 x 18 mm stent that reduced the stenosis to 0% residual. The rest of the coronary vessels have mild plaques. Well preserved global left ventricular systolic function with an ejection fraction of approximately 60%. Left ventricular end-diastolic pressure 13 mmHg. Sinus bradycardia - asymptomatic HTN - uncontrolled HLD - statin tx - managed by PCP DM 2 - managed by PCP Carotid arterial disease - mild plaque on carotid u/s of 12/15/20 Cardiac systolic murmur - Echocardiogram of 03-24-21 showed LVEF 60-65%. PASP 20-25 mmHg Chief Complaint/HPI Chief Complaint/HPI Please see our progress note of the same date for condition at discharge Discharge Summary Hospital Course Pending Labs Laboratory Tests 04/22/21 04:47: White Blood Count 5.4, Red Blood Count 4.23, Hemoglobin 13.4, Hematocrit 39, Mean Corpuscular Volume 92, Mean Corpuscular Hemoglobin 32, Mean Corpuscular Hemoglobin Concent 34, Red Cell Distribution Width 13.3, Platelet Count 135, Mean Platelet Volume 10.1, Immature Granulocyte % (Auto) 0, Neutrophils (%) (Auto) 46, Lymphocytes (%) (Auto) 39, Monocytes (%) (Auto) 10, Eosinophils (%) (Auto) 3, Basophils (%) (Auto) 1, Neutrophils # (Auto) 2.5, Lymphocytes # (Auto) 2.1, Monocytes # (Auto) 0.6, Eosinophils # (Auto) 0.2, Basophils # (Auto) 0.1, Immature Granulocyte # (Auto) 0.0, Percent Immature Platelet Fraction 3.8, Sodium Level 138, Potassium Level 4.2, Chloride Level 106, Carbon Dioxide Level 21, Anion Gap 11, Blood Urea Nitrogen 16, Creatinine 0.89, Estimat Glomerular Filtration Rate 84, BUN/Creatinine Ratio 18, Glucose Level 204, Calcium Level 9.2 Discussion & Recommendations Home Medications Reviewed patient Home Medication Reconciliation performed by pharmacy medication reconciliations diesel truck technician and/or nursing. Patients Allergies have been reviewed. Discharge Home Medications: Reviewed and agree with Discharge Medication list on patient's Discharge Instruction sheet ARRON RAYMOND MD FACP [facility] CCDS Apr 22, 2021 12:43
== END 2021-04-22 10:35 | disposition home or self-care (01) ==
LOC: CATH 08:00 → ICU 10:44 → CATH 04-22 10:35
PROVIDERS: ATTEND Internal Medicine Cardiovascular Disease
DX: I25.10 Atherosclerotic heart disease of native coronary artery without angina pectoris (principal); I10 Essential (primary) hypertension; E11.9 Type 2 diabetes mellitus without complications; E78.2 Mixed hyperlipidemia; I65.29 Occlusion and stenosis of unspecified carotid artery; R01.1 Cardiac murmur, unspecified; Z79.899 Other long term (current) drug therapy; Z79.84 Long term (current) use of oral hypoglycemic drugs; Z79.82 Long term (current) use of aspirin
CPT/HCPCS: 80048; 80053; 80061; 85025; 85027; 85610; 85730; 87081; 93458; C1725; C1769; C1874; C1887; C1894 ×2; C9600; 36415